=== PATIENT | female | born 1990 | race Hispanic/Latino ===

== ENCOUNTER 2017-11-24 15:33 | Emergency (ER) | payer SELFPAY | END 2017-11-24 15:45 | disposition left against medical advice (07) | LOC: MADERS 15:33 | DX: Z53.21 Procedure and treatment not carried out due to patient leaving prior to being seen by health care provider (principal) ==

== ENCOUNTER 2018-03-17 16:32 | Emergency (ER) | payer OTHER ==
[2018-03-17 17:21] LABS: Bilirubin Negative (Negative); Blood, Urine Negative (Negative); Clarity Clear (Clear); Glucose, Urine (Dipstick) 100 mg/dL (Negative); Leukocyte Negative (Negative); Nitrite Negative (Negative); Protein, Urine (Dipstick) Negative (Neg-Trace); Urobilinogen 0.2 mg/dL (0.2-1.0)
== END 2018-03-17 18:13 | disposition home or self-care (01) ==
LOC: MADERS 16:32
DX: O99.89 Other specified diseases and conditions complicating pregnancy, childbirth and the puerperium (principal); R51 Headache; O99.612 Diseases of the digestive system complicating pregnancy, second trimester; K50.90 Crohn's disease, unspecified, without complications; Z3A.27 27 weeks gestation of pregnancy; Z79.899 Other long term (current) drug therapy
CPT/HCPCS: 81003; 99284

== ENCOUNTER 2018-03-28 08:54 | Outpatient (CLI) | payer OTHER | END 2018-03-28 08:55 | disposition home or self-care (01) | LOC: MADLAB 08:54 | PROVIDERS: ATTEND Family Medicine | DX: O09.893 Supervision of other high risk pregnancies, third trimester (principal) | CPT/HCPCS: 36415; 82951; 82952 ==